=== PATIENT | male | born 1960 | race Caucasian/White ===

== ENCOUNTER 2019-11-10 06:37 | Emergency (ER) | payer MEDICAID ==
[~2019-11-10] VITALS: Ht 175.3 cm; Wt 84.1 kg
[2019-11-10] MEDS ORDERED: ZIPR20CA2 PO (06:54)
[2019-11-10] MEDS ORDERED: ALBUTEROL SULFATE 2.5 MG/0.5 ML NEB SOLUTION NEB ONE (07:00)
[2019-11-10] MEDS ORDERED: IPRATROPIUM BROMIDE 0.5 MG/2.5 ML NEB SOLUTION NEB ONE (07:00)
[2019-11-10] MEDS ORDERED: IBUPROFEN 800 MG TABLET PO ONE (07:15)
[2019-11-10] MEDS ORDERED: ACETAMINOPHEN 325 MG TABLET PO ONE (07:15)
[2019-11-10] MEDS ORDERED: SODIUM CHLORIDE 0.9% 2,500 ML IV ONE (07:30)
[2019-11-10 07:34] LABS: BASOPHILS % (AUTO) 0.1 % (0.0-2.0); EOSINOPHILS % (AUTO) 0.2 % (1.0-6.0); HEMATOCRIT 43.4 % (41-53); HEMOGLOBIN 14.9 g/dL (13.5-17.5); LYMPHOCYTES # (AUTO) 0.2 K/uL (1.0-4.8); LYMPHOCYTES % (AUTO) 2.1 % (22.0-44.0); MEAN CORPUSCULAR HEMOGLOBIN 33.7 pg (26.0-34.0); MEAN CORPUSCULAR HGB CONC 34.4 G/dL (31.0-37.0); MEAN CORPUSCULAR VOLUME 98 fL (80-100); MONOCYTES # (AUTO) 0.6 K/uL (0.1-1.0); MONOCYTES % (AUTO) 6.3 % (2.0-9.0); NEUTROPHILS # (AUTO) 8.7 K/uL (1.8-7.7); NEUTROPHILS % (AUTO) 91.3 % (40.0-70.0); PLATELET COUNT (AUTO) 166 K/uL (150-450); RED BLOOD CELL COUNT(AUTO) 4.42 MIL/uL (4.50-5.90)
[2019-11-10 07:45] LABS: ANION GAP 8 mmol/L (8-16); CALCIUM, TOTAL 8.7 mg/dL (8.8-10.5); CARBON DIOXIDE 27 mmol/L (22-29); CHLORIDE 105 mmol/L (98-107); CREATININE 0.89 mg/dL (0.60-1.30); GLOMERULAR FILTR. RATE CALC > 60 mL/min (>60); GLUCOSE,RANDOM 112 mg/dL (70-110); POTASSIUM 4.1 mmol/L (3.5-5.1); SODIUM SERUM 140 mmol/L (136-145); UREA NITROGEN, BLOOD 9 mg/dL (7-18)
[2019-11-10 07:48] LABS: ALANINE AMINOTRANSFERASE 26 U/L (12-78); ALBUMIN 3.8 g/dL (3.4-5.0); ALKALINE PHOSPHATASE 74 U/L (46-116); ASPARTATE AMINOTRANSFERASE 18 U/L (15-37); BILIRUBIN,TOTAL 0.4 mg/dL (0.1-1.0); TOTAL PROTEIN, SERUM 7.4 g/dL (6.4-8.2)
[2019-11-10 07:56] LABS: B-TYPE NATRIURETIC PEPTIDE 17 pg/mL (0-100)
[2019-11-10] MEDS ORDERED: IOVERSOL 350 MG/ML 100 ML VIAL ONE (08:19)
[2019-11-10] MEDS ORDERED: SODIUM CHLORIDE 0.9% 100 ML ONE (08:19)
[2019-11-10] MEDS ORDERED: GLEC1TAB PO (08:32)
[2019-11-10 08:48] LABS: INFLUENZA TYPE A NEGATIVE FOR TYPE A (NEGATIVE); INFLUENZA TYPE B NEGATIVE FOR TYPE B (NEGATIVE)
[2019-11-10 09:37] VITALS: BP 108/65
[2019-11-10] MEDS ORDERED: PredniSONE 20 MG TABLET PO ONE (09:45)
== END 2019-11-10 10:25 | disposition home or self-care (01) ==
LOC: EMS 06:37
DX: J18.9 Pneumonia, unspecified organism (principal); J44.1 Chronic obstructive pulmonary disease with (acute) exacerbation; J45.909 Unspecified asthma, uncomplicated; Z79.899 Other long term (current) drug therapy
CPT/HCPCS: 36415; 71045; 71260; 80053; 83605; 83880; 84484; 85025; 87040; 87804; 93005; 94640; 99284; J7050; J7512; Q9967

== ENCOUNTER 2019-11-23 11:51 | Emergency (ER) | payer MEDICAID ==
[~2019-11-23] VITALS: Ht 175.3 cm; Wt 84.1 kg
[~2019-11-23 11:51] MED LIST: GLEC1TAB PO; ZIPR20CA2 PO
[2019-11-23] MEDS ORDERED: FLUORESCEIN SODIUM 1 MG STRIP OU ONE (14:00)
[2019-11-23] MEDS ORDERED: PROPARACAINE HCL 0.5% 15 ML OPHTHALMIC SOLUTION OU ONE (14:00)
[2019-11-23] MEDS ORDERED: ERYTHROMYCIN 0.5% 3.5 GM TUBE OPHTHALMIC OINTMENT OU ONE (15:00)
[2019-11-23 15:02] VITALS: BP 138/92
[2019-11-23] MEDS ORDERED: ACETAMINOPHEN 500 MG TABLET PO ONE (15:15)
== END 2019-11-23 15:49 | disposition home or self-care (01) ==
LOC: EMS 11:58
DX: H10.9 Unspecified conjunctivitis (principal); J45.909 Unspecified asthma, uncomplicated; Z86.19 Personal history of other infectious and parasitic diseases; Z79.899 Other long term (current) drug therapy; Z98.890 Other specified postprocedural states

== ENCOUNTER 2021-01-25 21:22 | Emergency (ER) | payer MEDICAID ==
[~2021-01-25] VITALS: Ht 175.3 cm; Wt 92.7 kg
[2021-01-25 23:18] VITALS: BP 140/88
== END 2021-01-25 23:27 | disposition home or self-care (01) ==
LOC: EMS 21:24
DX: R44.3 Hallucinations, unspecified (principal); F31.9 Bipolar disorder, unspecified; J45.909 Unspecified asthma, uncomplicated; F19.90 Other psychoactive substance use, unspecified, uncomplicated
CPT/HCPCS: 99284; Z7502

== ENCOUNTER 2022-07-29 03:39 | Emergency (ER) | payer MEDICAID, OTHER ==
[~2022-07-29] VITALS: Ht 172.7 cm; Wt 75.0 kg
[~2022-07-29 03:39] MED LIST changes: -ZIPR20CA2 PO; +ZIPR20CA38 PO
[2022-07-29] MEDS ORDERED: ZIPR40CA38 PO (03:50)
[2022-07-29] MEDS ORDERED: HYDR-3422 PO (03:50)
[2022-07-29] MEDS ORDERED: MIRT-92 PO (03:50)
[2022-07-29] MEDS ORDERED: DOXY-354 PO (04:01)
[2022-07-29 04:03] VITALS: BP 119/73
== END 2022-07-29 04:09 | disposition home or self-care (01) ==
LOC: EMS 03:40
DX: L02.413 Cutaneous abscess of right upper limb (principal); S70.361A Insect bite (nonvenomous), right thigh, initial encounter; S50.861A Insect bite (nonvenomous) of right forearm, initial encounter; J45.909 Unspecified asthma, uncomplicated; F31.9 Bipolar disorder, unspecified; F15.90 Other stimulant use, unspecified, uncomplicated; Z87.19 Personal history of other diseases of the digestive system; Z87.09 Personal history of other diseases of the respiratory system; Z96.651 Presence of right artificial knee joint; Z98.890 Other specified postprocedural states; W57.XXXA Bitten or stung by nonvenomous insect and other nonvenomous arthropods, initial encounter; Y93.89 Activity, other specified; Y92.89 Other specified places as the place of occurrence of the external cause; Y99.8 Other external cause status
CPT/HCPCS: 99283; Z7502